=== PATIENT | female | born 1960 | race Caucasian/White ===

== ENCOUNTER → 2017-07-29 | Outpatient (CLI) | payer OTHER | END | disposition home or self-care (01) | LOC: CDC 09:44 | DX: Z01.810 Encounter for preprocedural cardiovascular examination (principal); M79.641 Pain in right hand; G56.01 Carpal tunnel syndrome, right upper limb; I45.4 Nonspecific intraventricular block; R94.31 Abnormal electrocardiogram [ECG] [EKG] | CPT/HCPCS: 93000 ==